=== PATIENT | male | born 1990 | race Caucasian/White ===

== ENCOUNTER 2021-05-21 00:21 | Emergency (ER) | payer BC ==
[2021-05-21] MEDS ORDERED: SODIUM CHLORIDE 0.9% 1,000 ML IV STA (01:13)
[2021-05-21] MEDS ORDERED: ONDANSETRON 4 MG/2 ML VIAL IVP STA (01:13)
[2021-05-21] MEDS ORDERED: SODIUM CHLORIDE 0.9% 500 ML 500 ML IV STA (01:13)
[2021-05-21] MEDS ORDERED: HYDROmorphone 1 MG/ML 1 ML SYRINGE IVP STA ×2 (01:13→02:14)
[2021-05-21 01:35] LABS: Basophils % (A) 0 %; Eosinophils # (A) 0.1 k/uL (0-0.7); Eosinophils % (A) 1 %; HCT 45.1 % (39.0-53.0); HGB 15.4 gm/dL (13.0-17.5); Lymphocytes # (A) 2.1 k/uL (1.0-4.8); Lymphocytes % (A) 28 %; MCH 28.9 pg (25.0-35.0); MCHC 34.2 g/dL (31.0-37.0); MCV 84.6 fL (80.0-100.0); Mean Platelet Volume 7.5; Monocytes # (A) 0.4 k/uL (0-1.0); Monocytes % (A) 5 %; Neutrophils # (A) 4.9 k/uL (1.3-7.7); Neutrophils % (A) 64 %; Platelet Count 239 k/uL (150-450); RBC 5.33 m/uL (4.30-5.90); RDW 12.4 % (11.5-15.5); WBC 7.6 k/uL (3.8-10.6)
[2021-05-21 01:45] LABS: ALT 18 U/L (4-49); AST 29 U/L (17-59); African American GFR (CKD) >90 (>60 ml/min/1.73 sqM); Albumin 4.5 g/dL (3.5-5.0); Alkaline Phosphatase 86 U/L (38-126); Anion Gap 10 mmol/L; Blood Urea Nitrogen 16 mg/dL (9-20); Calcium 9.9 mg/dL (8.4-10.2); Carbon Dioxide 28 mmol/L (22-30); Chloride 99 mmol/L (98-107); Glucose 145 mg/dL (74-99); Lipase 206 U/L (23-300); Non-African American GFR(CKD) >90 (>60 ml/min/1.73 sqM); Potassium 4.1 mmol/L (3.5-5.1); Sodium 137 mmol/L (137-145); Total Bilirubin 0.7 mg/dL (0.2-1.3); Total Protein 7.5 g/dL (6.3-8.2)
[2021-05-21 02:47] LABS: Appearance,Urine Clear (Clear); Bilirubin,Urine Negative (Negative); Blood,Urine Negative (Negative); Color,Urine Yellow; Glucose,Urine (UA) Negative (Negative); Ketones,Urine 2+ (Negative); Leukocyte Esterase,Urine Negative (Negative); Mucus,Urine Few /hpf; Nitrite,Urine Negative (Negative); Protein,Urine 1+ (Negative); RBC,Urine 2 /hpf (0-5); Specific Gravity,Urine 1.027 (1.001-1.035); Urobilinogen,Urine <2.0 mg/dL (<2.0); WBC,Urine 1 /hpf (0-5)
--- NOTE | 2021-05-21 02:56 | CT ---
EXAMINATION TYPE: CT abdomen pelvis w con DATE OF EXAM: 05/21/2021 COMPARISON: None HISTORY: pain CT DLP: 927.70 mGycm Automated exposure control for dose reduction was used. CONTRAST: Performed with IV Contrast, patient injected with 100 mL of Isovue 300. Images obtained from the diaphragm to the floor the pelvis with IV contrast. Lung bases are clear. There is no pleural effusion. Heart size is normal. There is no pericardial eff usion. Liver is intact. The bile ducts are not dilated. Spleen is intact. There is small calcified granuloma in the spleen. There is no pancreatic mass. Gallbladder is large and measures 4.7 cm in diameter. There is no adrenal mass. Kidneys show satisfactory contrast opacification. There is no hydronephrosi s. There is no retroperitoneal adenopathy. There is no inguinal hernia. There is no free fluid in the pelvis. There is no mesenteric edema. There is no ascites or free air. There is no bowel obstruction. Appendi x is posterior and appears normal. The lumbar vertebra have normal spacing and alignment. Posterior elements are intact. There is no com pression fracture. Bony pelvis is intact. Hip joints are intact. IMPRESSION: Normal appendix. Borderline dilated gallbladder. Gallbladder dysfunction is possible. No gallbladder wall thickening s een however. Normal pancreas.
[2021-05-21] MEDS ORDERED: ACET/COD 300 MG/30 MG STARTER PACK 6 TAB BTL PO STA (03:03)
--- NOTE | 2021-05-21 03:03 | ED ---
Abdominal Pain HPI - General Chief Complaint: Abdominal Pain Stated Complaint: Abdominal pain Time Seen by Provider: 05/21/21 00:33 Source: patient Mode of arrival: ambulatory - History of Present Illness Initial Comments: 30 year-old male patient presents for evaluation of upper abdominal pain. Patient states pain started a few hours ago and has not improved. States he is nauseated with this and did have an episode of vomiting after arrival. Denies fever or chills. Denies any hematuria, dysuria, urinary frequency, urinary urgency. Denies constipation or diarrhea. Denies history of abdominal surgery. Reports intermittent alcohol use approximately one to 2 times per week. Denies drug use. States he has had similar episode of pain last week which did resolve after a bowel movement. Patient denies any recent rash, cough, shortness of breath, chest pain, back pain, numbness, tingling, dizziness, weakness, hematuria, dysuria, urinary urgency, urinary frequency, headache, visual changes, or any other complaints. - Related Data Allergies Allergy/AdvReac Type Severity Reaction Status Date / Time No Known Allergies Allergy Verified 05/21/21 00:27 Review of Systems ROS Statement: Those systems with pertinent positive or pertinent negative responses have been documented in the HPI. ROS Other: All systems not noted in ROS Statement are negative. Past Medical History Past Medical History: No Reported History History of Any Multi-Drug Resistant Organisms: None Reported Past Surgical History: No Surgical Hx Reported Past Psychological History: No Psychological Hx Reported Smoking Status: Current some day smoker Past Alcohol Use History: None Reported Past Drug Use History: None Reported General Exam General appearance: alert, in no apparent distress, other (This is a well- developed, well-nourished, nontoxic-appearing adult male patient in no acute distress. Vital signs upon presentation are temperature 97.8F, pulse 68, respirations 18, blood pressure 125/76, pulse ox 99% on room air.) Eye exam: Present: normal appearance, PERRL, EOMI. Absent: scleral icterus, conjunctival injection, periorbital swelling ENT exam: Present: normal exam, normal oropharynx, mucous membranes moist Respiratory exam: Present: normal lung sounds bilaterally. Absent: respiratory distress, wheezes, rales, rhonchi, stridor Cardiovascular Exam: Present: regular rate, normal rhythm, normal heart sounds. Absent: systolic murmur, diastolic murmur, rubs, gallop, clicks GI/Abdominal exam: Present: soft, tenderness (Midepigastric, left upper quadrant), normal bowel sounds. Absent: distended, guarding, rebound, rigid Neurological exam: Present: alert, oriented X3, CN II-XII intact Psychiatric exam: Present: normal affect, normal mood Skin exam: Present: warm, dry, intact, normal color. Absent: rash Course Vital Signs 05/21/21 00:23 Temperature 97.8 F Pulse Rate 68 Respiratory 18 Rate Blood Pressure 125/76 O2 Sat by Pulse 99 Oximetry Medical Decision Making - Medical Decision Making 30-year-old male patient presents to the emergency department today for evaluation of midepigastric abdominal pain radiating through to the back. Physical examination did reveal midepigastric and left upper quadrant tenderness. Labs reviewed and are unremarkable. White blood cell count is normal. Liver enzymes are normal. CT abdomen and pelvis was obtained and did show borderline dilated gallbladder which could indicate gallbladder dysfunction. No gallbladder wall thickening. I did discuss findings and results with the patient. He is instructed to follow low-fat diet. Is instructed follow up with his primary care physician for further evaluation. Return parameters were discussed in detail. He verbalizes understanding and agrees with this plan. Case discussed with my attending Dr. Dunn. - Lab Data Result diagrams: 05/21/21 01:18 05/21/21 01:18 Lab Results 05/21/21 05/21/21 05/21/21 Range/Units 01:18 01:18 01:18 WBC 7.6 (3.8-10.6) k/uL RBC 5.33 (4.30-5.90) m/uL Hgb 15.4 (13.0-17.5) gm/dL Hct 45.1 (39.0-53.0) % MCV 84.6 (80.0-100.0) fL MCH 28.9 (25.0-35.0) pg MCHC 34.2 (31.0-37.0) g/dL RDW 12.4 (11.5-15.5) % Plt Count 239 (150-450) k/uL MPV 7.5 Neutrophils % 64 % Lymphocytes % 28 % Monocytes % 5 % Eosinophils % 1 % Basophils % 0 % Neutrophils # 4.9 (1.3-7.7) k/uL Lymphocytes # 2.1 (1.0-4.8) k/uL Monocytes # 0.4 (0-1.0) k/uL Eosinophils # 0.1 (0-0.7) k/uL Basophils # 0.0 (0-0.2) k/uL Sodium 137 (137-145) mmol/L Potassium 4.1 (3.5-5.1) mmol/L Chloride 99 (98-107) mmol/L Carbon Dioxide 28 (22-30) mmol/L Anion Gap 10 mmol/L BUN 16 (9-20) mg/dL Creatinine 0.86 (0.66-1.25) mg/dL Est GFR (CKD-EPI)AfAm >90 (>60 ml/min/1.73 sqM) Est GFR (CKD-EPI)NonAf >90 (>60 ml/min/1.73 sqM) Glucose 145 H (74-99) mg/dL Plasma Lactic Acid Emmett 2.0 (0.7-2.0) mmol/L Calcium 9.9 (8.4-10.2) mg/dL Total Bilirubin 0.7 (0.2-1.3) mg/dL AST 29 (17-59) U/L ALT 18 (4-49) U/L Alkaline Phosphatase 86 (38-126) U/L Total Protein 7.5 (6.3-8.2) g/dL Albumin 4.5 (3.5-5.0) g/dL Lipase 206 (23-300) U/L Urine Color Urine Appearance (Clear) Urine pH (5.0-8.0) Ur Specific [place] (1.001-1.035) Urine Protein (Negative) Urine Glucose (UA) (Negative) Urine Ketones (Negative) Urine Blood (Negative) Urine Nitrite (Negative) Urine Bilirubin (Negative) Urine Urobilinogen (<2.0) mg/dL Ur Leukocyte Esterase (Negative) Urine RBC (0-5) /hpf Urine WBC (0-5) /hpf Urine Mucus (None) /hpf 05/21/21 Range/Units 01:20 WBC (3.8-10.6) k/uL RBC (4.30-5.90) m/uL Hgb (13.0-17.5) gm/dL Hct (39.0-53.0) % MCV (80.0-100.0) fL MCH (25.0-35.0) pg MCHC (31.0-37.0) g/dL RDW (11.5-15.5) % Plt Count (150-450) k/uL MPV Neutrophils % % Lymphocytes % % Monocytes % % Eosinophils % % Basophils % % Neutrophils # (1.3-7.7) k/uL Lymphocytes # (1.0-4.8) k/uL Monocytes # (0-1.0) k/uL Eosinophils # (0-0.7) k/uL Basophils # (0-0.2) k/uL Sodium (137-145) mmol/L Potassium (3.5-5.1) mmol/L Chloride (98-107) mmol/L Carbon Dioxide (22-30) mmol/L Anion Gap mmol/L BUN (9-20) mg/dL Creatinine (0.66-1.25) mg/dL Est GFR (CKD-EPI)AfAm (>60 ml/min/1.73 sqM) Est GFR (CKD-EPI)NonAf (>60 ml/min/1.73 sqM) Glucose (74-99) mg/dL Plasma Lactic Acid Emmett (0.7-2.0) mmol/L Calcium (8.4-10.2) mg/dL Total Bilirubin (0.2-1.3) mg/dL AST (17-59) U/L ALT (4-49) U/L Alkaline Phosphatase (38-126) U/L Total Protein (6.3-8.2) g/dL Albumin (3.5-5.0) g/dL Lipase (23-300) U/L Urine Color Yellow Urine Appearance Clear (Clear) Urine pH 7.0 (5.0-8.0) Ur Specific [place] 1.027 (1.001-1.035) Urine Protein 1+ H (Negative) Urine Glucose (UA) Negative (Negative) Urine Ketones 2+ H (Negative) Urine Blood Negative (Negative) Urine Nitrite Negative (Negative) Urine Bilirubin Negative (Negative) Urine Urobilinogen <2.0 (<2.0) mg/dL Ur Leukocyte Esterase Negative (Negative) Urine RBC 2 (0-5) /hpf Urine WBC 1 (0-5) /hpf Urine Mucus Few H (None) /hpf - Radiology Data Radiology results: report reviewed, image reviewed CT abdomen and pelvis with contrast was obtained. Report was reviewed in its entirety. Impression by Dr. Flores shows normal appendix. Borderline dilated gallbladder. Gallbladder dysfunction as possible. No cough bladder wall thickening seen however. Normal pancreas. Disposition Clinical Impression: Dysfunctional gallbladder, Abdominal pain Disposition: HOME SELF-CARE Condition: Good Instructions (If sedation given, give patient instructions): Low Fat Diet (ED), Abdominal Pain (ED) Additional Instructions: Follow up with your primary care physician for recheck in 1-2 days. If you continue to have symptoms similar to this in December when she did see a surgeon for evaluation of her gallbladder. Return for any new, worsening, or concerning symptoms. Is patient prescribed a controlled substance at d/c from ED?: No Referrals: None,Stated [Primary Care Provider] - 1-2 days Time of Disposition: 03:03
[2021-05-21] MEDS ORDERED: ONDANSETRON 4 MG ODT STARTER PACK 2 TAB BTL PO STA (03:09)
[2021-05-21 03:24] VITALS: BP 131/87; PULSE 81; RESP 22; TEMP 98
== END 2021-05-21 03:24 | disposition home or self-care (01) ==
LOC: EC 00:21
DX: K82.8 Other specified diseases of gallbladder (principal); F17.200 Nicotine dependence, unspecified, uncomplicated
CPT/HCPCS: 99284; 96374; 96375; 96376; 96361 ×2; 36415; 80053; 83605; 83690; 85025; 81001; 74177; J2405; J1170; S0119; Q9967

== ENCOUNTER 2021-05-31 17:15 | Observation (INO) | payer BC ==
[2021-05-31] MEDS ORDERED: SODIUM CHLORIDE 0.9% 500 ML 500 ML IV STA (17:50)
[2021-05-31] MEDS ORDERED: HYDROmorphone 0.5 MG/0.5 ML SYRINGE IVP STA (17:50)
--- NOTE | 2021-05-31 18:16 | ED ---
General Adult HPI - General Chief complaint: Abdominal Pain Stated complaint: Abdominal Pain Time Seen by Provider: 05/31/21 17:20 Source: patient, EMS, RN notes reviewed, old records reviewed Mode of arrival: EMS Limitations: no limitations - History of Present Illness Initial comments: This is a 30-year-old male who presents emergency department via EMS for upper abdominal pain. More on the right than the left. Patient states she was here about 8-10 days ago with the same pain. Patient states today came on suddenly radiated around to his back and it was severe. Patient states the pain is somewhat better now but is still there and it is pretty significant he states. Patient denies any fever chills patient denies any nausea or vomiting patient denies any trauma patient denies diarrhea. - Related Data Home Medications Medication Instructions Recorded Confirmed L.acidoph,Paracasei, B.lactis 1 cap PO DAILY 05/31/21 05/31/21 [Probiotic] Omeprazole 20 mg PO DAILY 05/31/21 05/31/21 Allergies Allergy/AdvReac Type Severity Reaction Status Date / Time No Known Allergies Allergy Verified 05/31/21 18:23 Review of Systems ROS Statement: Those systems with pertinent positive or pertinent negative responses have been documented in the HPI. ROS Other: All systems not noted in ROS Statement are negative. Past Medical History Past Medical History: No Reported History History of Any Multi-Drug Resistant Organisms: None Reported Past Surgical History: No Surgical Hx Reported Past Psychological History: No Psychological Hx Reported Smoking Status: Current some day smoker Past Alcohol Use History: None Reported Past Drug Use History: None Reported General Exam - General Exam Comments Initial Comments: GENERAL: Patient is well-developed and well-nourished. Patient is nontoxic and well- hydrated and is in mild distress. ENT: Neck is soft and supple. No significant lymphadenopathy is noted. Oropharynx is clear. Moist mucous membranes. Neck has full range of motion without eliciting any pain. EYES: The sclera were anicteric and conjunctiva were pink and moist. Extraocular movements were intact and pupils were equal round and reactive to light. Eyelids were unremarkable. PULMONARY: Unlabored respirations. Good breath sounds bilaterally. No audible rales rhonchi or wheezing was noted. CARDIOVASCULAR: There is a regular rate and rhythm without any murmurs gallops or rubs. ABDOMEN: Patient has guarding in the right upper quadrant. Patient has no lower abdominal tenderness left upper quadrant tenderness. SKIN: Skin is clear with no lesions or rashes and otherwise unremarkable. NEUROLOGIC: Patient is alert and oriented x3. Cranial nerves II through XII are grossly intact. Motor and sensory are also intact. Normal speech, volume and content. Symmetrical smile. MUSCULOSKELETAL: Normal extremities with adequate strength and full range of motion. No lower extremity swelling or edema. No calf tenderness. LYMPHATICS: No significant lymphadenopathy is noted PSYCHIATRIC: Normal psychiatric evaluation. Limitations: no limitations Course Vital Signs 05/31/21 17:16 Temperature 98.6 F Pulse Rate 78 Respiratory 18 Rate Blood Pressure 123/62 O2 Sat by Pulse 100 Oximetry Medical Decision Making - Medical Decision Making Ultrasound shows a enlarged gallbladder with sludge also there is some gallbladder wall thickening and positive Barrera's sign. When I compare labs from today to his previous visit his white count is up and his liver enzymes are also up. I spoke with Dr. Kessler agreed to admit the patient admitted the patient I wrote admitting orders. I started the patient on Zosyn - Lab Data Result diagrams: 05/31/21 18:22 05/31/21 18:22 Lab Results 05/31/21 05/31/21 05/31/21 Range/Units 18:22 18:22 18:22 WBC 11.6 H (3.8-10.6) k/uL RBC 4.47 (4.30-5.90) m/uL Hgb 12.8 L (13.0-17.5) gm/dL Hct 37.9 L (39.0-53.0) % MCV 84.7 (80.0-100.0) fL MCH 28.7 (25.0-35.0) pg MCHC 33.9 (31.0-37.0) g/dL RDW 12.0 (11.5-15.5) % Plt Count 330 (150-450) k/uL MPV 6.7 Neutrophils % 80 % Lymphocytes % 14 % Monocytes % 5 % Eosinophils % 1 % Basophils % 0 % Neutrophils # 9.3 H (1.3-7.7) k/uL Lymphocytes # 1.6 (1.0-4.8) k/uL Monocytes # 0.5 (0-1.0) k/uL Eosinophils # 0.1 (0-0.7) k/uL Basophils # 0.0 (0-0.2) k/uL Sodium 138 (137-145) mmol/L Potassium 3.2 L (3.5-5.1) mmol/L Chloride 109 H (98-107) mmol/L Carbon Dioxide 21 L (22-30) mmol/L Anion Gap 8 mmol/L BUN 13 (9-20) mg/dL Creatinine 0.67 (0.66-1.25) mg/dL Est GFR (CKD-EPI)AfAm >90 (>60 ml/min/1.73 sqM) Est GFR (CKD-EPI)NonAf >90 (>60 ml/min/1.73 sqM) Glucose 97 (74-99) mg/dL Plasma Lactic Acid Emmett 1.1 (0.7-2.0) mmol/L Calcium 8.1 L (8.4-10.2) mg/dL Total Bilirubin 0.6 (0.2-1.3) mg/dL AST 98 H (17-59) U/L ALT 73 H (4-49) U/L Alkaline Phosphatase 143 H (38-126) U/L Total Protein 6.1 L (6.3-8.2) g/dL Albumin 3.4 L (3.5-5.0) g/dL Amylase 44 (30-110) U/L Lipase 71 (23-300) U/L Disposition Clinical Impression: Acute cholecystitis Disposition: ADMITTED IP TO THIS [facility] Referrals: None,Stated [Primary Care Provider] - 1-2 days Time of Disposition: 20:14
[2021-05-31 18:32] LABS: Basophils % (A) 0 %; Eosinophils # (A) 0.1 k/uL (0-0.7); Eosinophils % (A) 1 %; HCT 37.9 % (39.0-53.0); HGB 12.8 gm/dL (13.0-17.5); Lymphocytes # (A) 1.6 k/uL (1.0-4.8); Lymphocytes % (A) 14 %; MCH 28.7 pg (25.0-35.0); MCHC 33.9 g/dL (31.0-37.0); MCV 84.7 fL (80.0-100.0); Mean Platelet Volume 6.7; Monocytes # (A) 0.5 k/uL (0-1.0); Monocytes % (A) 5 %; Neutrophils # (A) 9.3 k/uL (1.3-7.7); Neutrophils % (A) 80 %; Platelet Count 330 k/uL (150-450); RBC 4.47 m/uL (4.30-5.90); WBC 11.6 k/uL (3.8-10.6)
[2021-05-31 18:48] LABS: ALT 73 U/L (4-49); AST 98 U/L (17-59); African American GFR (CKD) >90 (>60 ml/min/1.73 sqM); Albumin 3.4 g/dL (3.5-5.0); Alkaline Phosphatase 143 U/L (38-126); Amylase 44 U/L (30-110); Anion Gap 8 mmol/L; Blood Urea Nitrogen 13 mg/dL (9-20); Calcium 8.1 mg/dL (8.4-10.2); Carbon Dioxide 21 mmol/L (22-30); Chloride 109 mmol/L (98-107); Glucose 97 mg/dL (74-99); Lipase 71 U/L (23-300); Non-African American GFR(CKD) >90 (>60 ml/min/1.73 sqM); Potassium 3.2 mmol/L (3.5-5.1); Sodium 138 mmol/L (137-145); Total Bilirubin 0.6 mg/dL (0.2-1.3); Total Protein 6.1 g/dL (6.3-8.2)
--- NOTE | 2021-05-31 19:14 | US ---
EXAMINATION TYPE: US gallbladder DATE OF EXAM: 05/31/2021 COMPARISON: CT dated 05/21/2021 CLINICAL HISTORY: Right upper quadrant abdominal pain. RUQ abdominal pain. EXAM MEASUREMENTS: Liver Length: 18.2 cm Gallbladder Wall: 0.4 cm CBD: 0.47 cm Right Kidney: 11.5 x 5.8 x 4.3 cm Limited due to overlying bowel gas. Pancreas: Limited. Tail is obscured by gas. Liver: Appears enlarged. Gallbladder: Appears distended measuring 10.2 cm in length and 4.2 cm in width. Internal echoes seen possibly representing tumefactive sludge: 8.6 3.2 x 2.0 cm. Wall appears thick measuring 0.4 cm. Evidence for sonographic Barrera's sign: Yes CBD: Portions seen appear wnl. Right Kidney: No hydronephrosis or masses seen IMPRESSION: There are some limitations to the exam. There is hepatic steatosis change, hepatomegaly. Correlate for cholecystitis.
[2021-05-31] MEDS ORDERED: PIPERACILLIN-TAZOBACTAM 3.375 GM in SODIUM CHLORIDE 0.9% 100 ML IVPB STA (20:14)
[2021-05-31] MEDS ORDERED: SODIUM CHLORIDE 0.9% 1,000 ML IV ONE (20:15)
[2021-05-31] MEDS ORDERED: HYDROmorphone 0.5 MG/0.5 ML SYRINGE IVP PRN (20:16)
[2021-06-01] MEDS: PIPERACILLIN-TAZOBACTAM 3.375 GM in SODIUM CHLORIDE 0.9% 100 ML IVPB SCH ×3 (05:15→21:28)
[2021-06-01] MEDS ORDERED: POTASSIUM CHLORIDE 20 MEQ in WATER FOR INJECTION 1 100ML.BAG IVPB STA (08:48)
[2021-06-01 09:02] LABS: Potassium 4.6 mmol/L (3.5-5.1)
[2021-06-01] MEDS: SODIUM CHLORIDE 0.9% 1,000 ML IV SCH ×3 (09:30→21:28)
[2021-06-01 10:08] LABS: Basophils # (A) 0.02 X 10*3/uL (0.00-0.10); Basophils % (A) 0.3 %; Eosinophils # (A) 0.06 X 10*3/uL (0.04-0.35); Eosinophils % (A) 0.9 %; HCT 43.9 % (39.6-50.0); HGB 14.7 g/dL (13.0-17.0); Lymphocytes # (A) 1.87 X 10*3/uL (0.90-5.00); Lymphocytes % (A) 26.5 %; MCH 28.3 pg (27.0-32.0); MCHC 33.5 g/dL (32.0-37.0); MCV 84.6 fL (80.0-97.0); Mean Platelet Volume 9.4 fL (9.5-12.2); Monocytes # (A) 0.59 X 10*3/uL (0.20-1.00); Monocytes % (A) 8.4 %; Neutrophils # (A) 4.48 X 10*3/uL (1.80-7.70); Neutrophils % (A) 63.5 %; Platelet Count 341 X 10*3/uL (140-440); RBC 5.19 X 10*6/uL (4.40-5.60); RDW 12.3 % (11.5-14.5); WBC 7.05 X 10*3/uL (4.50-10.00)
[2021-06-01 11:26] LABS: African American GFR (CKD) 131.4 (60.0-200.0); Albumin 3.9 g/dL (3.8-4.9); Albumin/Globulin Ratio 1.56 (1.60-3.17); BUN/Creat Ratio 10.56 Ratio (12.00-20.00); Blood Urea Nitrogen 9.5 mg/dL (9.0-27.0); Calcium 9.2 mg/dL (8.7-10.3); Globulin 2.5 g/dL (1.6-3.3); Non-African American GFR(CKD) 113.4 (60.0-200.0); Potassium 4.6 mmol/L (3.5-5.5); Total Bilirubin 0.7 mg/dL (0.30-1.20); Total Protein 6.4 g/dL (6.2-8.2)
--- NOTE | 2021-06-01 12:25 | P.GSHP ---
<Sindi Kay - Last Filed: 06/01/21 12:18> History of Present Illness H&P Date: 06/01/21 Chief Complaint: Abdominal pain CHIEF COMPLAINT: Abdominal pain HISTORY OF PRESENT ILLNESS: This is a 30-year-old male who presented to the emergency department yesterday by EMS after experiencing severe upper abdominal pain. Shouldn't states he started having abdominal pain 3-4 weeks ago that woke him up in the middle of the night which lasted about 2-3 hours. This again hap pened last Friday when he woke up and had severe pain so he came to the emergency department and was sent home. He went to see a surgeon at [facility] which she states told him they thought it was possible peptic ulcer disease and started him on omeprazole. Again this week he started having abdominal pain and yesterday it states it was a 10 associated with some vomiting. Patient states also last week he had some nausea and vomiting related to the abdominal pain as well. This morning he states he's feeling much better. Patient states overall bowel movements have been regular, soft. He currently has no nausea or vomiting. He denies any fevers or chills. Ultrasound of gallbladder showed hepatic steatosis change, hepatomegaly. Correlate for cholecystitis. Gallbladder appeared distended measuring 10.2 cm x 4.2 cm. Internal echoes seen possibly representing tumefactive sludge. 8.6 x 3.2 x 2.0 cm. While appears thick measuring 0.4 cm. Positive Barrera sign. On admission mild leukocytosis WBC 11.6 hemoglobin 12.8 hematocrit 37.9 platelet count 330,000 sodium 138 potassium 3.2 albumin 13 creatinine 0.7 total bilirubin 0.6 AST 98 ALT 73 alkaline phosphatase 143 amylase 44 lipase 71. Afebrile. PAST MEDICAL HISTORY: No Reported medical history PAST SURGICAL HISTORY: No reported surgical history MEDICATIONS: See list. ALLERGIES: No known ALLERGIES SOCIAL HISTORY: No illicit drug use. Current smoker. REVIEW OF SYSTEMS: CONSTITUTIONAL: Denies fever or chills. HEENT: Denies blurred vision, vision changes, or eye pain. Denies hemoptysis CARDIOVASCULAR: Denies chest pain or pressure. RESPIRATORY: No shortness of breath. GASTROINTESTINAL: Severe upper abdominal pain. Associated nausea and vomiting. Bowel movements have been normal, soft, regular. Pain improved today. HEMATOLOGIC: Denies bleeding disorders. GENITOURINARY: Denies any blood in urine or increased urinary frequency. SKIN: Denies pruitis. Denies rash. PHYSICAL EXAM: VITAL SIGNS: Reviewed GENERAL: Well-developed in no acute distress. HEENT: No sclera icterus. Extraocular movements grossly intact. Moist buccal mucosa. Head is atraumatic, normocephalic. No nasal drainage. ABDOMEN: Soft. Nondistended. Tenderness along the upper quadrant of abdomen. NEUROLOGIC: Alert and oriented. Cranial nerves II through XII grossly intact. LABORATORY DATA: WBC 7.0 hemoglobin 14.7 hematocrit 43.9 platelet count 341,000 Sodium 139 potassium 4.6 nightly 9.5 creatinine 0.9 glucose 87 Total bilirubin 0.7 AST 196 ALT 272 alkaline phosphatase 223 IMAGING: Ultrasound of the gallbladder: Shows gallbladder distention with internal echoes seen possibly representing tumefactive sludge. Barrera sign positive. Hepatic steatosis change, hepatomegaly. Correlate for cholecystitis. ASSESSMENT: 1. Cholecystitis 2. Abdominal pain 3. Transaminitis PLAN: 1. Keep nothing by mouth 2. Continue Zosyn 3. Repeat CBC, CMP tomorrow 4. Patient scheduled for laparoscopic cholecystectomy, possible open 5. Further recommendations forthcoming per surgeon The impression and plan of care has been dictated as directed. Dr. Navarro I performed a history and examination of this patient, discussed the same with the dictator. I agree with the dictator's note ,documented as a scribe. Any additional findings or plans will be noted. Past Medical History Past Medical History: No Reported History History of Any Multi-Drug Resistant Organisms: None Reported Past Surgical History: No Surgical Hx Reported Past Psychological History: Depression Additional Psychological History / Comment(s): depression at age 18. Smoking Status: Current every day smoker Past Alcohol Use History: None Reported Additional Past Alcohol Use History / Comment(s): occasional on weekends Past Drug Use History: None Reported - Past Family History Mother Family Medical History: Thyroid Disorder Father Family Medical History: Diabetes Mellitus Medications and Allergies Home Medications Medication Instructions Recorded Confirmed Type L.acidoph,Paracasei, B.lactis 1 cap PO DAILY 05/31/21 05/31/21 History [Probiotic] Omeprazole 20 mg PO DAILY 05/31/21 05/31/21 History Allergies Allergy/AdvReac Type Severity Reaction Status Date / Time No Known Allergies Allergy Verified 05/31/21 18:23 Surgical - Exam Vital Signs Temp Pulse Resp BP Pulse Ox 98.6 F 78 18 123/62 100 05/31/21 17:16 05/31/21 17:16 05/31/21 17:16 05/31/21 17:16 05/31/21 17:16 Results - Labs 06/01/21 05:41 06/01/21 05:41 Abnormal Lab Results - Last 24 Hours (Table) 05/31/21 05/31/21 Range/Units 18:22 18:22 WBC 11.6 H (3.8-10.6) k/uL Hgb 12.8 L (13.0-17.5) gm/dL Hct 37.9 L (39.0-53.0) % Neutrophils # 9.3 H (1.3-7.7) k/uL Potassium 3.2 L (3.5-5.1) mmol/L Chloride 109 H (98-107) mmol/L Carbon Dioxide 21 L (22-30) mmol/L Calcium 8.1 L (8.4-10.2) mg/dL AST 98 H (17-59) U/L ALT 73 H (4-49) U/L Alkaline Phosphatase 143 H (38-126) U/L Total Protein 6.1 L (6.3-8.2) g/dL Albumin 3.4 L (3.5-5.0) g/dL Diabetes panel 05/31/21 Range/Units 18:22 Sodium 138 (137-145) mmol/L Potassium 3.2 L (3.5-5.1) mmol/L Chloride 109 H (98-107) mmol/L Carbon Dioxide 21 L (22-30) mmol/L BUN 13 (9-20) mg/dL Creatinine 0.67 (0.66-1.25) mg/dL Glucose 97 (74-99) mg/dL Calcium 8.1 L (8.4-10.2) mg/dL AST 98 H (17-59) U/L ALT 73 H (4-49) U/L Alkaline Phosphatase 143 H (38-126) U/L Total Protein 6.1 L (6.3-8.2) g/dL Albumin 3.4 L (3.5-5.0) g/dL Calcium panel 05/31/21 Range/Units 18:22 Calcium 8.1 L (8.4-10.2) mg/dL Albumin 3.4 L (3.5-5.0) g/dL Pituitary panel 05/31/21 Range/Units 18:22 Sodium 138 (137-145) mmol/L Potassium 3.2 L (3.5-5.1) mmol/L Chloride 109 H (98-107) mmol/L Carbon Dioxide 21 L (22-30) mmol/L BUN 13 (9-20) mg/dL Creatinine 0.67 (0.66-1.25) mg/dL Glucose 97 (74-99) mg/dL Calcium 8.1 L (8.4-10.2) mg/dL Adrenal panel 05/31/21 Range/Units 18:22 Sodium 138 (137-145) mmol/L Potassium 3.2 L (3.5-5.1) mmol/L Chloride 109 H (98-107) mmol/L Carbon Dioxide 21 L (22-30) mmol/L BUN 13 (9-20) mg/dL Creatinine 0.67 (0.66-1.25) mg/dL Glucose 97 (74-99) mg/dL Calcium 8.1 L (8.4-10.2) mg/dL Total Bilirubin 0.6 (0.2-1.3) mg/dL AST 98 H (17-59) U/L ALT 73 H (4-49) U/L Alkaline Phosphatase 143 H (38-126) U/L Total Protein 6.1 L (6.3-8.2) g/dL Albumin 3.4 L (3.5-5.0) g/dL <Rafael Navarro - Last Filed: 06/01/21 15:35> History of Present Illness As above. Patient with pain across the upper abdomen with radiation to the back. Today's enzymes increased. Patient's urine was darker in color this morning. His pain however has improved. Clinically suspect choledocholithiasis with acute cholecystitis. Options reviewed in detail. We'll proceed with MRCP at this time to better evaluate the biliary tree. Will eventually require laparoscopic cholecystectomy. Patient informed that transfer may be required if ERCP is necessary. Surgical - Exam Vital Signs Temp Pulse Resp BP Pulse Ox 98.6 F 78 18 123/62 100 05/31/21 17:16 05/31/21 17:16 05/31/21 17:16 05/31/21 17:16 05/31/21 17:16 Results - Labs 06/01/21 05:41 06/01/21 05:41 Abnormal Lab Results - Last 24 Hours (Table) 05/31/21 05/31/21 06/01/21 Range/Units 18:22 18:22 05:41 WBC 11.6 H (3.8-10.6) k/uL Hgb 12.8 L (13.0-17.5) gm/dL Hct 37.9 L (39.0-53.0) % MPV 9.4 L (9.5-12.2) fL Neutrophils # 9.3 H (1.3-7.7) k/uL Potassium 3.2 L (3.5-5.1) mmol/L Chloride 109 H (98-107) mmol/L Carbon Dioxide 21 L (22-30) mmol/L BUN/Creatinine Ratio (12.00-20.00) Ratio Calcium 8.1 L (8.4-10.2) mg/dL AST 98 H (17-59) U/L ALT 73 H (4-49) U/L Alkaline Phosphatase 143 H (38-126) U/L Total Protein 6.1 L (6.3-8.2) g/dL Albumin 3.4 L (3.5-5.0) g/dL Albumin/Globulin Ratio (1.60-3.17) g/dL 06/01/21 Range/Units 05:41 WBC (3.8-10.6) k/uL Hgb (13.0-17.5) gm/dL Hct (39.0-53.0) % MPV (9.5-12.2) fL Neutrophils # (1.3-7.7) k/uL Potassium (3.5-5.1) mmol/L Chloride (98-107) mmol/L Carbon Dioxide (22-30) mmol/L BUN/Creatinine Ratio 10.56 L (12.00-20.00) Ratio Calcium (8.4-10.2) mg/dL AST 196 H (17-59) U/L ALT 272 H (4-49) U/L Alkaline Phosphatase 223 H (38-126) U/L Total Protein (6.3-8.2) g/dL Albumin (3.5-5.0) g/dL Albumin/Globulin Ratio 1.56 L (1.60-3.17) g/dL Diabetes panel 05/31/21 06/01/21 06/01/21 Range/Units 18:22 05:41 05:41 Sodium 138 141 139 (137-145) mmol/L Potassium 3.2 L 4.6 4.6 (3.5-5.1) mmol/L Chloride 109 H 106 106 (98-107) mmol/L Carbon Dioxide 21 L 23.0 24 (22-30) mmol/L BUN 13 9.5 (9-20) mg/dL Creatinine 0.67 0.9 (0.66-1.25) mg/dL Glucose 97 87 (74-99) mg/dL Calcium 8.1 L 9.2 (8.4-10.2) mg/dL AST 98 H 196 H (17-59) U/L ALT 73 H 272 H (4-49) U/L Alkaline Phosphatase 143 H 223 H (38-126) U/L Total Protein 6.1 L 6.4 (6.3-8.2) g/dL Albumin 3.4 L 3.9 (3.5-5.0) g/dL Calcium panel 05/31/21 06/01/21 Range/Units 18:22 05:41 Calcium 8.1 L 9.2 (8.4-10.2) mg/dL Albumin 3.4 L 3.9 (3.5-5.0) g/dL Pituitary panel 05/31/21 06/01/21 06/01/21 Range/Units 18:22 05:41 05:41 Sodium 138 141 139 (137-145) mmol/L Potassium 3.2 L 4.6 4.6 (3.5-5.1) mmol/L Chloride 109 H 106 106 (98-107) mmol/L Carbon Dioxide 21 L 23.0 24 (22-30) mmol/L BUN 13 9.5 (9-20) mg/dL Creatinine 0.67 0.9 (0.66-1.25) mg/dL Glucose 97 87 (74-99) mg/dL Calcium 8.1 L 9.2 (8.4-10.2) mg/dL Adrenal panel 05/31/21 06/01/21 06/01/21 Range/Units 18:22 05:41 05:41 Sodium 138 141 139 (137-145) mmol/L Potassium 3.2 L 4.6 4.6 (3.5-5.1) mmol/L Chloride 109 H 106 106 (98-107) mmol/L Carbon Dioxide 21 L 23.0 24 (22-30) mmol/L BUN 13 9.5 (9-20) mg/dL Creatinine 0.67 0.9 (0.66-1.25) mg/dL Glucose 97 87 (74-99) mg/dL Calcium 8.1 L 9.2 (8.4-10.2) mg/dL Total Bilirubin 0.6 0.70 (0.2-1.3) mg/dL AST 98 H 196 H (17-59) U/L ALT 73 H 272 H (4-49) U/L Alkaline Phosphatase 143 H 223 H (38-126) U/L Total Protein 6.1 L 6.4 (6.3-8.2) g/dL Albumin 3.4 L 3.9 (3.5-5.0) g/dL
[2021-06-01] MEDS: HEPARIN SODIUM,PORCINE/PF 5,000 UNIT/0.5 ML SYRINGE SQ SCH (15:56)
[2021-06-01] MEDS: FAMOTIDINE 20 MG/2 ML VIAL IV SCH (21:27)
--- NOTE | 2021-06-01 21:36 | MR ---
EXAMINATION TYPE: MR MRCP DATE OF EXAM: 06/01/2021 COMPARISON: Ultrasound from 05/31/2021 HISTORY: Abdominal pain, evaluate for choledocholithiasis. Standard multiplanar, multisequence MRI departmental protocol Multiplanar, multisequence images of the liver and biliary tree were acquired without contrast. Diffu pastor weighted imaging was performed. FINDINGS: Severe wall thickening involving the gallbladder measuring up to 1.4 cm. Sludge material is noted. Th ere is luminal narrowing involving the cystic duct proximally. The remainder of the cystic duct appea rs patent. Common bile duct is of normal caliber. No evidence of pericholecystic fluid. There is evid ence of hepatic steatosis. No intrahepatic lesions are seen. Pancreas spleen adrenal glands and kidne ys are grossly unremarkable as is the proximal abdominal aorta. Pancreatic duct is of normal caliber. IMPRESSION: Dear gallbladder wall thickening with sludge material noted. As discussed there is a focal luminal na rrowing involving the proximal cystic duct. I cannot exclude changes of acute cholecystitis. Addition al possibility is that of neoplasm versus infiltrative process.
[2021-06-02] MEDS: HEPARIN SODIUM,PORCINE/PF 5,000 UNIT/0.5 ML SYRINGE SQ SCH ×2 (00:04→08:19)
[2021-06-02] MEDS: PIPERACILLIN-TAZOBACTAM 3.375 GM in SODIUM CHLORIDE 0.9% 100 ML IVPB SCH (05:31)
[2021-06-02] MEDS: FAMOTIDINE 20 MG/2 ML VIAL IV SCH (08:16)
[2021-06-02 09:08] LABS: Basophils # (A) 0.01 X 10*3/uL (0.00-0.10); Basophils % (A) 0.2 %; Eosinophils # (A) 0.09 X 10*3/uL (0.04-0.35); Eosinophils % (A) 1.5 %; HCT 43.1 % (39.6-50.0); Lymphocytes # (A) 1.96 X 10*3/uL (0.90-5.00); Lymphocytes % (A) 33.3 %; MCH 27.7 pg (27.0-32.0); MCHC 32.5 g/dL (32.0-37.0); MCV 85.3 fL (80.0-97.0); Mean Platelet Volume 9.3 fL (9.5-12.2); Monocytes # (A) 0.36 X 10*3/uL (0.20-1.00); Monocytes % (A) 6.1 %; Neutrophils # (A) 3.45 X 10*3/uL (1.80-7.70); Neutrophils % (A) 58.7 %; Platelet Count 344 X 10*3/uL (140-440); RBC 5.05 X 10*6/uL (4.40-5.60); RDW 12.2 % (11.5-14.5); WBC 5.88 X 10*3/uL (4.50-10.00)
[2021-06-02 09:16] VITALS: BP 114/67; PULSE 68; RESP 16; TEMP 98.3
[2021-06-02 10:18] LABS: BUN/Creat Ratio 13.81 Ratio (12.00-20.00); Globulin 2.4 g/dL (1.6-3.3)
[2021-06-02 10:19] LABS: African American GFR (CKD) 133.4 (60.0-200.0); Albumin 3.8 g/dL (3.8-4.9); Albumin/Globulin Ratio 1.61 (1.60-3.17); Anion Gap 11.6 mmol/L (4.00-12.00); Calcium 9.1 mg/dL (8.7-10.3); Non-African American GFR(CKD) 115.1 (60.0-200.0); Potassium 4.4 mmol/L (3.5-5.5); Total Bilirubin 0.4 mg/dL (0.30-1.20); Total Protein 6.2 g/dL (6.2-8.2)
--- NOTE | 2021-06-02 11:14 | P.PN ---
Progress Note - Text Progress Note Date: 06/02/21 Patient feels better. He is requesting to home. His liver function tests improved. On exam vital signs are stable. Abdomen soft. Patiently discharged home today. He was instructed to return back to the emergency room if he has any significant abdominal pain. Otherwise he will follow-up Dr. Navarro next week.
[2021-06-02] MEDS: SODIUM CHLORIDE 0.9% 1,000 ML IV SCH (11:53)
--- NOTE | 2021-06-11 09:54 | P.DS ---
Providers Date of admission: 05/31/21 20:15 Attending physician: Rafael Navarro Primary care physician: Stated None Hospital Course: Patient minute to the hospital with upper abdominal pain. Found have elevated liver enzymes and gallbladder sludge. The patient had an ultrasound showing possible acute cholecystitis. Liver enzymes increased on hospital day 2 and the patient had some dark urine. An MRI was then obtained. No filling defect in the common bile duct was seen. The gallbladder wall wasn't inflamed. The patient had sludge. There may have been some narrowing of the proximal cystic duct. Patient was doing better the following day and was discharged home with outpatient follow-up plan. No procedure was performed during hospital stay. Plan - Discharge Summary Discharge Rx Participant: No New Discharge Prescriptions: New Levofloxacin [Levaquin] 500 mg PO DAILY 1 Days #7 tab No Action L.acidoph,Paracasei, B.lactis [Probiotic] 1 cap PO DAILY Omeprazole 20 mg PO DAILY Discharge Medication List L.acidoph,Paracasei, B.lactis [Probiotic] 1 cap PO DAILY 05/31/21 [History] Omeprazole 20 mg PO DAILY 05/31/21 [History] Levofloxacin [Levaquin] 500 mg PO DAILY 1 Days #7 tab 06/02/21 [Rx] Follow up Appointment(s)/Referral(s): None,Stated [Primary Care Provider] - 1-2 days Patient Instructions/Handouts: Cholecystitis (GEN), Low Fat Diet (DC) Discharge Disposition: HOME SELF-CARE
== END 2021-06-02 12:22 | disposition home or self-care (01) ==
LOC: EC 17:15 → 6NMEDSUR 20:15
PROVIDERS: ADMIT Surgery; ATTEND Surgery
DX: R10.11 Right upper quadrant pain (principal); R10.12 Left upper quadrant pain; K82.8 Other specified diseases of gallbladder; R11.2 Nausea with vomiting, unspecified; R74.01 Elevation of levels of liver transaminase levels; R16.0 Hepatomegaly, not elsewhere classified; R82.90 Unspecified abnormal findings in urine; K76.0 Fatty (change of) liver, not elsewhere classified; Z79.899 Other long term (current) drug therapy; F17.200 Nicotine dependence, unspecified, uncomplicated; Z20.822 Contact with and (suspected) exposure to COVID-19; F32.9 Major depressive disorder, single episode, unspecified; Z83.3 Family history of diabetes mellitus; Z83.49 Family history of other endocrine, nutritional and metabolic diseases
CPT/HCPCS: 99285; 96376 ×2; 96361 ×3; 96366 ×2; 96372; 96375 ×2; 96365; 36415; 80051; 80053 ×3; 82150; 83605; 83690; 85025 ×3; 87635; 76705; 74181; G0378 ×3; J2543 ×3; J1170; J1644